=== PATIENT | male | born 2000 | race Caucasian/White ===

== ENCOUNTER 2021-11-28 13:11 | Outpatient (CLI) | payer BC | END 2021-11-28 13:12 | disposition home or self-care (01) | LOC: BICMRI 13:11 | PROVIDERS: ATTEND Family Medicine | DX: M51.24 Other intervertebral disc displacement, thoracic region (principal); M47.814 Spondylosis without myelopathy or radiculopathy, thoracic region | CPT/HCPCS: 72146 ==